=== PATIENT | male | born 1935 | race Caucasian/White ===

== ENCOUNTER 2017-07-07 21:19 | Inpatient (IN) | payer OTHER, BC ==
[~2017-07-07] VITALS: Ht 172.7 cm; Wt 82.6 kg
--- NOTE | ~2017-07-07 | EKG ---
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 : 1935 Requested By: Henry Dixon Order Number: [id number] MD: Wilmar Alex Measurements Intervals [place] Rate: 85 P: 54 NV: 180 QRS: -65 QRSD: 139 T: 85 QT: 394 QTc: 469 Interpretive Statements Sinus rhythm Occasional atrial premature complexes Right bundle branch block LVH with IVCD and secondary repol abnrm Inferior infarct, old Compared to ECG 04/24/2014 09:15:49 Atrial premature complexes are now present Electronically Signed On 07-08-2017 8:09:38 [employer]ING [employer] by Wilmar Alex [email or web address] <ELECTRONICALLY SIGNED> By: Wilmar Alex MD, [facility] 07/08/17 0809 [phone] Wilmar Alex MD, [facility] /EPI
--- NOTE | ~2017-07-07 | H ---
[facility] [place] [address] HISTORY AND PHYSICAL Name: FLASH COLEMAN Room #: 441-P ADM IN .R.#: [id number] Admission: 07/07/17 Attend Phys: Anamika Morales Discharge: Date of : 35 Report #: [id number] THIS REPORT FOR: //name// CC: Bertrand Valadez DATE OF SERVICE: 07/08/2017 CHIEF COMPLAINT: Shortness of breath. HISTORY OF PRESENT ILLNESS: The patient is an 82-year-old gentleman who presented to the Emergency Room with acute shortness of breath. He said, last night he felt chest tightness, wheezing and he was coughing up clear thin sputum, developed yesterday evening. He said prior to this, he had been in his usual state of health and was feeling well. He had no recent chest pain, fever, chills, edema or productive cough. Evaluation in the ER revealed elevated BNP and chest x-ray with pulmonary edema. He also had elevated blood pressure of approximately 200/100. He has responded well to IV Lasix. PAST MEDICAL HISTORY: Hypertension, remote history of diskitis, lumbar spinal stenosis, hypertension, diabetes type 2, polyneuropathy. PAST SURGICAL HISTORY: Noncontributory. FAMILY HISTORY: His parents with heart disease. SOCIAL HISTORY: He is a former smoker, [id number], quit remotely. No chronic alcohol use. ALLERGIES: SULFA. MEDICATIONS: Aspirin, trazodone, oxycodone 10 mg, Myrbetriq, Flomax 0.4 mg. REVIEW OF SYSTEMS: He denies headache, chest pain, shortness of breath, abdominal pain, nausea, vomiting, diarrhea, constipation, dysuria, syncope. OBJECTIVE: VITAL SIGNS: Temperature 36.9, pulse 55, respirations 18, blood pressure 151/73, O2 sat 99% on room air. GENERAL: He is awake and alert, in no distress. LUNGS: Clear. HEART: Regular. ABDOMEN: Soft, normoactive bowel sounds. EXTREMITIES: There is trace ankle edema. NEUROLOGIC: Cranial nerves intact. He is alert and oriented. Global strength 5/5 throughout. [facility] [address] [place] [address] HISTORY AND PHYSICAL Name: FLASH COLEMAN Room #: 441-P [facility] IN .R.#: [id number] Admission: 07/07/17 Attend Phys: Anamika Morales Discharge: Date of : 35 Report #: [id number] LABORATORY DATA: BNP was approximately 800. Troponin negative. Flu swab negative. Chest x-ray, interstitial edema. ASSESSMENT: 1. Acute congestive heart failure. 2. Hypertension. PLAN: Losartan will be started and I have asked for an echocardiogram. I have consulted Dr. Mancuso. See for DVT prophylaxis. Anticipate medical treatment with outpatient followup. <ELECTRONICALLY SIGNED> By: Henry Rodriguez MD 07/08/17 1432 1412 1427 Henry Rodriguez MD /michaela
--- NOTE | ~2017-07-07 | 2DMMODE ---
[facility] [address] [place] [address] 2 D/M-MODE ECHOCARDIOGRAM Name: FLASH COLEMAN Room #: 441-P [facility] IN [facility].#: [id number] Admission: 07/07/17 Attend Phys: Bertrand Hernandez Discharge: Date of : 35 Date of Service: 07/08/17 1541 Report #: [id number] THIS REPORT FOR: //name// APPROVED REPORT Study performed: 07/08/2017 14:48:05 EXAM: Comprehensive 2D, Doppler, and color-flow Echocardiogram Patient Location: Bedside Room #: [facility] Status: routine BSA: 1.94 HR: 61 bpm BP: 151/73 mmHg Other Information Study Quality: Adequate Indications Congestive Heart Failure Diabetes Dyspnea Hypertension/HDD 2D Dimensions RVDd: 30.94 mm LVEF(%): 60.11 (>50%) IVSd: 10.60 (7-11mm) LVOT Diam: 19.73 (18-24mm) LVDd: 46.72 mm PWd: 10.28 (7-11mm) Ascending Ao: 29.84 (22-36mm) LVDs: 31.77 (25-40mm) Aortic Root: 31.83 mm IVC: 27.00 mm Dorsey's LVEF: 60.11 % Volumes Left Atrial Volume (Systole) Single Plane 4CH: 67.62 mL Single Plane 2CH: 57.38 mL LA ESV Index: 37.00 mL/m2 Aortic Valve AoV Peak Jaspreet.: 1.15 m/s AO Peak Gr.: 5.31 mmHg LVOT Max P.31 mmHg LVOT Max V: 0.91 m/s REVA Vmax: 2.41 cm2 AI Vmax: 4.36 m/s AI [place]: 2.22 m/s2 [facility] [place] [address] 2 D/M-MODE ECHOCARDIOGRAM Name: FLASH COLEMAN Room #: 441-P [facility] IN .R.#: [id number] Admission: 07/07/17 Attend Phys: Bertrand Hernandez Discharge: Date of : 35 Date of Service: 07/08/17 1541 Report #: [id number] AI PHT: 570.17 ms Mitral Valve E/A Ratio: 3.0 MV Decel. Time: 179.26 ms MV E Max Jaspreet.: 1.15 m/s MV A Jaspreet.: 0.38 m/s MV PHT: 51.98 ms IVRT: 73.82 ms Pulmonary Valve PV Peak Jaspreet.: 0.97 m/s PV Peak Gr.: 3.79 mmHg WA End Vmax: 1.09 m/s Pulmonary Vein P Vein S: 0.36 m/s P Vein A: 0.23 m/s P Vein D: 0.89 m/s P Vein A Dur.: 115.3 msec P Vein S/D Ratio: 0.40 Tricuspid Valve TR Peak Jaspreet.: 3.17 m/s TR Peak Gr.: 40.17 mmHg PA Pressure: 50.00 mmHg Left Ventricle The left ventricle is normal size. There is normal LV segmental wall motion. There is normal left ventricular wall thickness. The left ventricular systolic function is normal. The left ventricular ejection fraction is within the normal range. LVEF is 50-55%. Grade III - reversible restrictive diastolic dysfunction. Right Ventricle The right ventricle is normal size. The right ventricular systolic function is normal. Atria Left atrium is dilated. Right atrium is dilated. Aortic Valve The aortic valve is midly sclerotic Mild aortic regurgitation. There is no aortic valvular stenosis. Mitral Valve The mitral valve is normal in structure. Mild mitral regurgitation. No evidence of mitral valve stenosis. [facility] [address] [place] [address] 2 D/M-MODE ECHOCARDIOGRAM Name: FLASH COLEMAN Room #: 441-P [facility] IN .R.#: [id number] Admission: 07/07/17 Attend Phys: Bertrand Hernandez Discharge: Date of : 35 Date of Service: 07/08/17 1541 Report #: [id number] Tricuspid Valve The tricuspid valve is normal in structure. There is mild tricuspid regurgitation. Estimated PAP 50 mmHg. There is moderate pulmonary hypertension. Pulmonic Valve The pulmonary valve is normal in structure. Trace pulmonic regurgitation. Great Vessels The aortic root is normal in size. IVC is dilated and collapses <50% with inspiration. Pericardium There is no pericardial effusion. <Conclusion> The left ventricular systolic function is normal. There is normal LV segmental wall motion. LVEF 50-55%. Grade III diastolic dysfunction Both atria are dilated. The aortic valve is midly sclerotic. Mild aortic regurgitation, no stenosis. The mitral valve is normal in structure. Mild mitral regurgitation. There is mild tricuspid regurgitation. Estimated pulmonary artery pressure of 50 mmHg. There is no pericardial effusion. <ELECTRONICALLY SIGNED> By: Wilmar Alex MD, FACC 07/08/17 [id number] Wilmar Alex MD, FACC /INF
--- NOTE | ~2017-07-07 | D ---
[facility] [place] [address] DISCHARGE SUMMARY Name: FLASH COLEMAN Room #: 441-P [facility] IN M.R.#: [id number] Admission: 07/07/17 Attend Phys: Anamika Morales Discharge: 07/09/17 Date of : 35 Report #: [id number] THIS REPORT FOR: //name// CC: Bertrand Valadez DATE OF SERVICE: 07/09/2017 CHIEF COMPLAINT: 1. Acute congestive heart failure. 2. Hypertension. HOSPITAL COURSE: The patient was admitted with shortness of breath and diagnosed with acute congestive heart failure due to probably accelerated hypertension with initial readings of 200/100. He was treated medically and responded well to diuretic and ARB. Dr. Garrett saw him in consultation. Echocardiogram was fairly unremarkable. Nuclear stress test was negative. The following day, he had no complications and plans were for outpatient followup. DISPOSITION: He will be discharged to home with diet and activity as tolerated, low sodium diet. Follow up with Dr. Valadez and Dr. Garrett in 1-2 weeks. He will continue usual medications plus Lasix 20 mg a day, mEq a day and losartan 100 mg a day. <ELECTRONICALLY SIGNED> By: Henry Rodriguez MD 07/10/17 1540 1027 [id number] Henry Rodriguez MD /nt
[~2017-07-07 21:19] MED LIST: ACID CONTROL20 MG PO; ALLOPURINOL 10100 M1 PO; AMBIEN 5 MG TABL5 M1 PO; ATIVAN0.5 MG PO; ATIVAN1 MG PO; B12INJ IM; BACTROBAN CREAM30 G1 TOP; CEFADROXIL 500500 M1 PO; CIPRO250 M1 PO; CLEOCIN HCL150 MG PO; CYMBALTA20 MG PO; CYMBALTA60 MG PO; ECOTRIN325 MG PO; ENOXAPARIN40 MG/0.4 SUBQ; FLOMAX0.4 MG; FLOMAX0.4 MG PO; FOLIC ACID1 MG PO; FUROSEMIDE 40 M40 M1 PO; GNP THERAPEUTI1 EACH PO; HYDROCHLOROTHIA25 M2 PO; HYDROCODON-ACE1 EAC5 PO; HYDROCODONE-AP1 EAC6 PO; K-DUR 20 MEQ T20 MEQ PO; KLOR-CON 1010 MEQ PO; LASIX 40 MG TAB40 M1 PO; LISINOPRIL10 MG PO; LORAZEPAM 1 MG T1 MG PO; MULTI VITAMIN1 EACH PO; NAFCILLIN 2 GM A2 G1 IV; OXYCODONE HCL E10 MG PO; Oxycodone PO; PANCRELIPASE 51 EACH PO; PERCOCET 5-3251 EACH PO; PREDNISONE 10 M10 MG PO; PRINIVIL10 MG PO; ROXICODONE5 M1 PO; SENNA PO; SIMVASTATIN40 MG PO; TAMSULOSIN HCL0.4 M1 PO; TRAZODONE 150150 M1; TUMS CHEWA500 MG/11 PO; VITAMIN B-1100 M1 PO; VITAMIN D-32000 UNIT PO; VITAMIN D400 UNI1; XARELTO10 MG PO
[2017-07-07 21:21] VITALS: BP 214/98
[2017-07-07 21:43] LABS: ABSOLUTE NEUTROPHILS 6.5 thou/uL (1.4-8.2); BASOPHILS 0.4 % (0.0-2.0); EOSINOPHILS 1.8 % (0.0-3.0); HEMATOCRIT 42.9 % (42.0-52.0); HEMOGLOBIN 14.4 gm/dL (14.0-18.0); LYMPHOCYTES 11.9 % (24.0-44.0); MCH 31.8 pg (26.0-34.0); MCHC 33.5 g/dL (28.0-37.0); MONOCYTES 5.5 % (1.0-8.0); PLATELET COUNT 126 thou/uL (150-400); POLYS 80.4 % (36.0-66.0); RBC 4.52 mil/uL (4.50-6.00)
[2017-07-07] MEDS ORDERED: TRAZODONE HCL100 MG PO (21:46)
[2017-07-07 21:49] LABS: CALCIUM 9.2 mg/dL (8.5-10.1); CREATININE 1.1 mg/dL (0.7-1.3)
[2017-07-07 22:53] VITALS: BP 174/70
[2017-07-07 23:26] VITALS: BP 147/57
[2017-07-08 03:53] VITALS: BP 141/67
[2017-07-08 05:02] LABS: CALCIUM 8.6 mg/dL (8.5-10.1); CREATININE 1.1 mg/dL (0.7-1.3); POTASSIUM 3.8 mmol/L (3.5-5.1)
[2017-07-08 08:00] VITALS: BP 151/73
[2017-07-08 16:00] VITALS: BP 169/73
[2017-07-08 21:00] VITALS: BP 164/79
[2017-07-09 02:06] LABS: GLYCOHEMOGLOBIN (HGB A1C) 5.5 % (4.8-5.6)
[2017-07-09 04:47] VITALS: BP 146/71
[2017-07-09 05:49] LABS: HEMATOCRIT 40.1 % (42.0-52.0); HEMOGLOBIN 13.4 gm/dL (14.0-18.0); MCH 31.7 pg (26.0-34.0); MCHC 33.5 g/dL (28.0-37.0); MCV 94.6 fL (80.0-100.0); RBC 4.24 mil/uL (4.50-6.00); RDW 13.7 % (10.5-14.5); WBC 6.1 thou/uL (4.0-11.0)
[2017-07-09 06:26] LABS: CALCIUM 8.6 mg/dL (8.5-10.1); POTASSIUM 3.8 mmol/L (3.5-5.1)
[2017-07-09 07:34] VITALS: BP 144/65
[2017-07-09] MEDS ORDERED: COZAAR100 MG PO (10:16)
[2017-07-09] MEDS ORDERED: ASPIR 8181 MG PO (10:16)
[2017-07-09] MEDS ORDERED: K-TAB ER8 MEQ PO (10:17)
[2017-07-09] MEDS ORDERED: LASIX 20 MG TAB20 MG PO (10:17)
[2017-07-09 13:52] VITALS: BP 144/65
[2017-08-18] MEDS ORDERED: TRAZODONE HCL100 MG PO (11:02)
[2017-08-18] MEDS ORDERED: NITROGLYCERIN0.4 MG SUBLING (11:02)
[2017-08-18] MEDS ORDERED: OXYCODONE HCL10 MG PO (11:04)
[2017-09-22] MEDS ORDERED: BENICAR40 MG PO (08:45)
[2017-09-22] MEDS ORDERED: KLOR-CON 1010 MEQ PO (08:45)
[2017-09-22] MEDS ORDERED: ASPIR 8181 MG PO (08:46)
[2017-09-22] MEDS ORDERED: LASIX 20 MG TAB20 MG PO (08:46)
== END 2017-07-09 14:40 | disposition home or self-care (01) | DRG 291 ==
LOC: ER 21:19 → 4S 22:13 → EROBS 22:13 → 4S 22:54
PROVIDERS: Emergency Medicine; Internal Medicine Geriatric Medicine
DX: I11.0 Hypertensive heart disease with heart failure (principal); J96.00 Acute respiratory failure, unspecified whether with hypoxia or hypercapnia; E89.0 Postprocedural hypothyroidism; M10.9 Gout, unspecified; F32.9 Major depressive disorder, single episode, unspecified; F41.9 Anxiety disorder, unspecified; Z96.641 Presence of right artificial hip joint; N40.0 Benign prostatic hyperplasia without lower urinary tract symptoms; E11.42 Type 2 diabetes mellitus with diabetic polyneuropathy; Z82.49 Family history of ischemic heart disease and other diseases of the circulatory system; Z87.442 Personal history of urinary calculi; Z79.82 Long term (current) use of aspirin; Z79.899 Other long term (current) drug therapy; Z88.2 Allergy status to sulfonamides; Z87.891 Personal history of nicotine dependence; I50.31 Acute diastolic (congestive) heart failure
CPT/HCPCS: 10100

== ENCOUNTER → 2017-08-18 | Outpatient (CLI) | payer OTHER, BC ==
[~2017-08-18] VITALS: Ht 172.7 cm; Wt 89.6 kg
[~2017-08-18] MED LIST changes: +ASPIR 8181 MG PO; +COZAAR100 MG PO; +K-TAB ER8 MEQ PO; +LASIX 20 MG TAB20 MG PO; +NITROGLYCERIN0.4 MG SUBLING; +OXYCODONE HCL10 MG PO; +TRAZODONE HCL100 MG PO
--- NOTE | ~2017-08-18 | HPC ---
[facility] [place] [address] PAIN MANAGEMENT CONSULTATION Name: FLASH COLEMAN Room #: REG [facility]#: [id number] Admission: 08/18/17 Attend Phys: Jose Luis Moreno DO Discharge: Date of : 35 Report #: [id number] THIS REPORT FOR: //name// CC: Bertrand Moreno DATE OF SERVICE: 08/18/2017 CHIEF COMPLAINT: Low back pain, left lower extremity pain and paresthesias. HISTORY OF PRESENT ILLNESS: As you know, the patient is an 82-year-old male who has been referred to our service for low back pain, left lower extremity pain that began on 06/18/2017. The patient denies specific injury or trauma that may have led to symptom development. The patient indicates pain began spontaneously and progressively worsened. The patient sought evaluation through his primary care physician, Dr. Bertrand Valadez, who referred the patient to our clinic for evaluation. The patient apparently failed conservative treatment and was subsequently referred to our service. He comes today to our clinic, describing pain as intermittent, describes the pain as tender, numbness and tingling. He indicates pain level of 5/10, daily average at 5/10, worst pain has been is 10/10. The patient states sitting and lying down exacerbates symptoms, aspirin therapy and oxycodone tends to improve pain. He has been referred to our service for evaluation. He comes today with no new imaging studies, most recent MRI is from 2016, greater than 2 years old. He returns to discuss options of treatment for suspected lumbar radiculopathy. PAST MEDICAL HISTORY: 1. Hypertension. 2. Degenerative joint disease. 3. Osteoarthritis. 4. History of gout. 5. Parathyroid cancer. PAST SURGICAL HISTORY: 1. Tonsillectomy. 2. Parathyroidectomy. 3. Colonoscopy. 4. Right total hip arthroplasty. 5. Left total hip arthroplasty. SOCIAL HISTORY: The patient denies tobacco, IV or illicit drug use. Admits to 5 alcoholic beverages per week. He is retired, retired years ago. He is not receiving workmen's compensation nor is trying to obtain disability benefits. He is not in litigation in regards to pain. He is unaccompanied today. REVIEW OF SYSTEMS: Positive for wearing corrective eyewear, hearing loss with [facility] [address] [place] [address] PAIN MANAGEMENT CONSULTATION Name: FLASH COLEMAN Samson Room #: REG [facility]#: [id number] Admission: 08/18/17 Attend Phys: Jose Luis Moreno DO Discharge: Date of : 35 Report #: [id number] tinnitus, chronic nosebleed, constipation, frequent urination, nocturia, incontinence, dribbling to urine, sexual difficulty, low back pain, left lower extremity pain and paresthesias. All other review of systems negative per 12-point review of systems other than those listed in history of present illness. Pain impact score 16/70, indicating mild interference of daily activities secondary to pain. ALLERGIES: SULFA. CURRENT MEDICATIONS: Oxycodone 10 mg every 12 hours p.r.n. pain, trazodone 100 mg p.o. at bedtime, nitroglycerin 0.4 mg p.r.n. IMAGING: MRI lumbar spine obtained on 07/16/2015 shows lumbar spondylosis seen and disk space narrowing and mild central canal narrowing at L3-L4, bulging of the L3-L4 disk with fairly significant neural foraminal narrowing at L3-L4. Degenerative changes noted throughout the rest of the lumbar spine. PQRS: The patient does have known osteoarthritis. No rheumatoid arthritis. His pain impact score 5/10. He is not a fall risk, has not had a fall in the last 3 months. He does use a walker for ambulation. He is not on blood thinners. He is treated for hypertension. He is not on opioids of greater than 6 weeks, receiving medications through his PCP. He has a low risk of opioid abuse. His functional assessment tool/pain impact score 16/70, mild to moderate. PHYSICAL EXAMINATION: VITAL SIGNS: Blood pressure 176/89, pulse of 63, respiratory rate 12 and unlabored. The patient is 97% on room air. Height 5 feet 8 inches tall, weight 197.6 pounds, BMI calculated 30.1. GENERAL: Well-developed, well-nourished, well-hydrated, 82-year-old male. He appears his stated age, placing pain score 5/10. HEENT: Normocephalic, atraumatic. Pupils equal, round, reactive to light. Extraocular muscles are intact. Sclerae nonicteric without injection. NEUROLOGIC: Cranial nerves 2-12 grossly intact. Speech is fluent. The patient deemed a good historian. LUNGS: Clear; no wheeze, rhonchi or rales. CARDIOVASCULAR: Regular. No appreciable gallop, no rub. ABDOMEN: Soft, normoactive bowel sounds. EXTREMITIES: Show no clubbing, no cyanosis, no edema. MUSCULOSKELETAL: Lower extremity strength appears equal and symmetrical 5/5, intact to light touch from L1 through S2 dermatomes. Seated straight leg raising negative. Supine straight leg raising positive on the left. Sergey's test negative. Modified Gaenslen's positive for axial low back pain. Ankle clonus negative. Babinski is negative. Lumbar provocation testing including extension, rotation, lateral flexion all intensify axial back pain, no radiation of symptoms. [facility] [address] [place] [address] PAIN MANAGEMENT CONSULTATION Name: FLASH COLEMAN Room #: REG [facility]#: [id number] Admission: 08/18/17 Attend Phys: Jose Luis Moreno DO Discharge: Date of : 35 Report #: [id number] ASSESSMENT: 1. Symptomatic lumbar radiculopathy. 2. Displacement of lumbar intervertebral disk with radiculopathy. 3. Lumbosacral spondylosis with radiculopathy. 4. Facet arthropathy of lumbar spine. 5. Chronic intractable pain. PLAN: 1. Based on today's physical exam and history the patient has provided, the description the patient uses in regards to pain as well as location of symptoms, likely source of his pain is lumbar radiculopathy. We have reviewed with the patient the 2-year-old MRI imaging that he came with today. Unfortunately, we do not have newer imaging and are unable to determine specifically the pathology that exists in the lumbar region. Given the distribution, it does appear to be that he is suffering from an L4-L5 dermatomal distribution problem on the left. The level of pathology cannot be fully determined with a 2-year-old imaging. We did discuss with the patient the options for treatment to address what appears to be lumbar radicular symptoms. We discussed the following with the patient today. We discussed physical therapy, stretching exercises, core strengthening as a conservative treatment option. We discussed medication management with neuropathic pain medications and consistent nonsteroidal anti-inflammatory. We discussed epidural injections for which the patient was referred to our clinic and surgical options. After reviewing risks and benefits of all proposed treatment options, the patient chose to begin with a lumbar epidural injection. The patient was advised risks and benefits of a lumbar epidural injection. These risks include but are not necessarily limited to bleeding, bruising, infection, worsening pain, no relief of pain, also risk of temporary or permanent muscle weakness, temporary or permanent nerve damage, possible paralysis and . The patient states understood and wished to proceed. 2. No medication changes made at today's visit. The patient to continue current medical therapy as previously prescribed. 3. The patient will return to our clinic in approximately 3 weeks. At that time, review efficacy of today's epidural injection and to determine if next in the series of epidural injections would be recommended. 4. I wish to thank Dr. Valadez for the referral of this patient to our clinic. We will keep you apprised of his response to treatment as we address his suspected lumbar radiculopathy. Again, we wish to thank you for the opportunity to see the patient in consultation. PROCEDURE NOTE DESCRIPTION OF PROCEDURE: L5-S1 left paramedian epidural steroid injection [address] [address] PAIN MANAGEMENT CONSULTATION Name: FLASH COLEMAN Room #: REG [facility]#: [id number] Admission: 08/18/17 Attend Phys: Jose Luis Moreno DO Discharge: Date of : 35 Report #: [id number] under fluoroscopic guidance. This is the first procedure of the first series that the patient is undergoing. After obtaining written consent, the patient was taken back to the fluoroscopy suite, placed in a prone position with pillow under the abdomen to decrease lumbar lordosis. The skin overlying the lumbosacral area was then prepped and draped in aseptic fashion. The L5-S1 vertebral interspace was then identified by AP fluoroscopy. The skin and subcutaneous tissue overlying the target site of injection was anesthetized with 3 mL 1% lidocaine. A 20 gauge 3.5 inch Tuohy needle was then advanced under fluoroscopic guidance towards the epidural space using a left paramedian approach. The epidural space was identified using loss of resistance to air technique. After negative aspiration for heme or cerebrospinal fluid, a total of 1 mL of Omnipaque was injected. A lumbar epidurogram was confirmed using both AP and lateral fluoroscopy. After negative aspiration for heme or cerebrospinal fluid, 5 mL of a solution containing 2 mL 40 mg per mL, 80 mg total triamcinolone, 3 mL lidocaine 1% was injected in increments. Contrast spread was noted posterior epidural space. The needle was then retracted approximately half way and needle tract flushed with 1 mL of 1% of lidocaine. Needle was then removed. There were no apparent sensory or motor deficits in the lower extremity following the procedure. A sterile bandage was placed over the injection site. The heart rate, pulse, oximetry and blood pressure were continuously monitored after the procedure. There were no apparent complications. The patient tolerated the procedure well and was carefully escorted to the recovery room in stable condition. There were no apparent complications. After meeting discharge criteria, the patient was then discharged home. <ELECTRONICALLY SIGNED> By: Jose Luis Moreno DO 08/25/17 1403 0700 [id number] Jose Luis Moreno DO /nt
[2017-08-18 10:52] VITALS: BP 176/89
== END | disposition home or self-care (01) ==
LOC: PAIN 07:10
DX: M51.16 Intervertebral disc disorders with radiculopathy, lumbar region (principal); G89.29 Other chronic pain; M47.27 Other spondylosis with radiculopathy, lumbosacral region; M46.96 Unspecified inflammatory spondylopathy, lumbar region; I10 Essential (primary) hypertension; E11.9 Type 2 diabetes mellitus without complications; M10.9 Gout, unspecified; M19.90 Unspecified osteoarthritis, unspecified site; Z88.2 Allergy status to sulfonamides; Z79.891 Long term (current) use of opiate analgesic; Z96.643 Presence of artificial hip joint, bilateral; Z98.890 Other specified postprocedural states; Z85.850 Personal history of malignant neoplasm of thyroid; Z87.891 Personal history of nicotine dependence

== ENCOUNTER → 2017-09-08 | Outpatient (CLI) | payer OTHER, BC ==
[~2017-09-08] VITALS: Ht 172.7 cm; Wt 82.6 kg
--- NOTE | ~2017-09-08 | HPC ---
[facility] [address] [place] [address] PAIN MANAGEMENT CONSULTATION Name: FLASH COLEMAN Room #: REG [facility]#: [id number] Admission: 09/08/17 Attend Phys: Jose Luis Moreno DO Discharge: Date of : 35 Report #: [id number] THIS REPORT FOR: //name// CC: Navid Moreno DATE OF SERVICE: 09/08/2017 REFERRING PHYSICIAN: Navid Valadez MD CHIEF COMPLAINT: Left thigh pain. HISTORY OF PRESENT ILLNESS: As you know, the patient is an 82-year-old male who returns today in followup visit stating continued left thigh pain even after epidural injection. He has been evaluated by orthopedic surgery and advised that his symptoms are not related to his total hip arthroplasty, that his symptoms are likely more related to low back. The patient underwent an epidural injection at our last visit, which provided 100% improvement in his numbness and tingling radiating down the leg, but he remains having difficulty with pain in the right lateral portion of the thigh, it appears to be related more to the iliotibial band. He returns stating that he is quite frustrated that his pain has not disappeared. He is seeking evaluation and requesting possible surgical options. He "is tired of trying bandaging his symptoms." He returns to discuss options for treatment, he is placing pain score today no greater than 5/10, states his state the pain is warm, hard and sore in sensation, exacerbated with activities, improves with medications and Biofreeze. He is placing again pain score 5/10. He has had no changes in medical history since our last visit. ALLERGIES: SULFA. CURRENT MEDICATIONS: Oxycodone 10 mg every 12 hours, trazodone 100 mg p.o. at bedtime, and nitroglycerin 0.4 mg p.r.n. IMAGING: No imaging available. PQRS: The patient has known osteoarthritis. No rheumatoid arthritis. He is placing pain score intensity at 5/10. He is not a fall risk, has not had a fall in the last 3 months. He is not on blood thinners. He is treated for hypertension. He is not on opioids. He has a low risk for opioid abuse. Functional assessment tool pain impact score 16/70, mild. PHYSICAL EXAMINATION: VITAL SIGNS: Blood pressure 157/72, pulse 62, respiratory rate 20 and unlabored, the patient is 100% on room air, height 5 feet 8 inches tall, weight 182 pounds, and BMI calculated 27.7. [facility] [address] [place] [address] PAIN MANAGEMENT CONSULTATION Name: FLASH COLEMAN Room #: [facility]#: [id number] Admission: 09/08/17 Attend Phys: Jose Luis Moreno DO Discharge: Date of : 35 Report #: [id number] GENERAL: Well-developed, well-nourished, well-hydrated 82-year-old male, he appears stated age, he is placing pain score today 5/10. HEENT: Normocephalic, atraumatic. Pupils are equal, round, and reactive to light. Extraocular muscles are intact. EXTREMITIES: Show no clubbing, no cyanosis, and no edema. MUSCULOSKELETAL: Seated straight leg raising negative. Supine straight leg raising positive on the left. Sergey's test negative. Modified Gaenslen's positive for axial low back pain. There is palpatory tenderness over the lateral portion of the left thigh radiating from the greater trochanter to the lateral aspect of the left knee. No radiation of symptoms beyond the knee itself. ASSESSMENT: 1. Symptomatic lumbar radiculopathy. 2. Spinal stenosis of the lumbar spine. 3. Displacement of lumbar intervertebral disk with radiculopathy. 4. 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 5. Peripheral neuropathy. 6. Chronic intractable pain. PLAN: The patient returns today in followup visit where we have discussed at length his ongoing pain on the left side radiating from the greater trochanter to approximately the lateral portion of the left knee. This appears to be related more to myofascial issues than any neuropathic component, though there is a strong possibility that his stenosis noted from the 2016 imaging at L3-L4 with significant neural foraminal stenosis could be the source of his symptoms. The patient and I had discussions of treatment options to address those specific issues, following was discussed with the patient today. We discussed physical therapy, stretching exercise, core strengthening as a way to improve left lower extremity pain. We discussed medication management with addition of a neuropathic medication and consistent nonsteroidal anti-inflammatory. We discussed repeating epidural injection as he did see good benefit from his numbness and tingling radiating down the leg from our last visit. In fact, he has had complete resolution of those symptoms. We also discussed spinal cord stimulator therapy is an option and surgical. The patient indicates that he is "tired of the bandaging his problems, and wishes a complete treatment option." The patient has chosen to be evaluated by neurosurgery. The patient will need to undergo new MRI, his MRI is from July 2015, 2 years old. He will need new imaging prior to being seen by neurosurgery. We will send the patient for MRI of the lumbar spine without contrast for evaluation. We will make this available to the referring physician Dr. Valadez, so that he may also review the findings. The patient once he has completed his MRI, can then follow up with phone numbers given for neurosurgery consultation. He can make his earliest appointment to see Neurosurgery in regards to surgical options. We will be available to see the patient back in followup visit for the next in the [place] [address] [address] [place] [address] PAIN MANAGEMENT CONSULTATION Name: FLASH COLEMAN Room #: REG [facility]#: [id number] Admission: 09/08/17 Attend Phys: Jose Luis Moreno DO Discharge: Date of : 35 Report #: [id number] series of epidural injections as I do feel that he received good benefit with therapy. He is unwilling at this time to undergo the procedure as he feels we are only applying a bandage to his problem and not resolving his problems consistently, though we will be available to see him back if he wishes. By: [id number] Jose Luis Moreno DO /nt
[2017-09-08 11:03] VITALS: BP 157/72
== END ==
LOC: PAIN 06:07
DX: M47.26 Other spondylosis with radiculopathy, lumbar region (principal); G62.9 Polyneuropathy, unspecified; Z88.2 Allergy status to sulfonamides

== ENCOUNTER → 2017-09-16 | Outpatient (CLI) | payer OTHER, BC | LOC: MRI 13:58 | DX: M51.16 Intervertebral disc disorders with radiculopathy, lumbar region (principal); M48.061 Spinal stenosis, lumbar region without neurogenic claudication ==

== ENCOUNTER → 2017-09-22 | Outpatient (CLI) | payer OTHER, BC ==
[~2017-09-22] VITALS: Ht 172.7 cm; Wt 82.6 kg
[~2017-09-22] MED LIST changes: +BENICAR40 MG PO
--- NOTE | ~2017-09-22 | HPC ---
[facility] [address] [place] [address] PAIN MANAGEMENT CONSULTATION Name: FLASH COLEMAN Room #: REG [facility]#: [id number] Admission: 09/22/17 Attend Phys: Jose Luis Moreno DO Discharge: Date of : 35 Report #: [id number] THIS REPORT FOR: //name// CC: BERTRAND Moreno DATE OF SERVICE: 09/22/2017 REFERRING PHYSICIAN: Dr. Bertrand Valadez. CHIEF COMPLAINT: Left thigh tenderness. HISTORY OF PRESENT ILLNESS: As you know, the patient is an 82-year-old male who returns today in followup visit with continued left thigh tightness and tenderness. The patient and I did discuss the potential cause of his ongoing left thigh tenderness and tightness sensation. I did believe it was due to neuropathic issues secondary to findings in the lumbar spine. He chose to undergo imaging. He returns today to review the findings. He is quite concerned about development of sarcoma. Apparently, his began to experience similar pain in her leg, she chose not to look into treatment options or evaluation. This apparently led to the patient's 's . He is quite fixated on the fact that his thigh is painful. He returns today in followup visit stating pain level of 4/10 at its maximum. He returns to discuss the findings of the MRI, we requested for evaluation to determine if surgical options would be necessary. ALLERGIES: SULFA. CURRENT MEDICATIONS: Oxycodone 10 mg every 12 hours, trazodone 100 mg p.o. at bedtime, nitroglycerin 0.4 mg p.r.n. IMAGING: MRI lumbar spine obtained 09/16/2017 shows L1-L2, L2-L3 unremarkable. At L3-L4, we have facet arthropathy, ligamentum flavum hypertrophy resulting in central canal stenosis. There is also bilateral symmetrical lateral recess stenosis that is severe on the left, [id number] on the right. At L4-L5, there is a minimal broad-based disk bulge, pressing on the thecal sac, though this is not causing any central canal stenosis. There is moderate bilateral neural foraminal stenosis. There is mild facet arthropathy, ligamentum flavum hypertrophy at the L5-S1 level. PQRS: The patient has known osteoarthritis. No rheumatoid arthritis. He has a pain intensity today listed at 4/10. He is not a fall risk, has not had a fall in the last 3 months. He is not on blood thinners. He is treated for hypertension. He is not on chronic opioids. For greater than 6 weeks, he has low risk of opioid abuse. His functional assessment tool, pain impact score [address] [address] PAIN MANAGEMENT CONSULTATION Name: COLEMANFLASH Room #: REG [facility].#: [id number] Admission: 09/22/17 Attend Phys: Jose Luis Moreno DO Discharge: Date of : 35 Report #: [id number] , mild. PHYSICAL EXAMINATION: VITAL SIGNS: Blood pressure 141/59, pulse 57, respiratory rate 14, unlabored. The patient is 97% on room air. Height 5 feet 8 inches tall, weight 182 pounds, BMI calculated 27.7. HEENT: Normocephalic, atraumatic. Pupils equal, round, reactive to light. Extraocular muscles are intact. Sclerae nonicteric without injection. NEUROLOGIC: Cranial nerves 2-12 grossly intact. Speech is fluent. The patient deemed a good historian. LUNGS: Clear, no wheeze, rhonchi or rales. CARDIOVASCULAR: Regular. No appreciable gallop or rub. ABDOMEN: Soft, nontender, nondistended. EXTREMITIES: Show no clubbing, no cyanosis, no edema. MUSCULOSKELETAL: Seated straight leg raising negative. Supine straight leg raising mildly positive on the left. Sergey test negative. Modified Gaenslen's positive for axial low back pain. Well-healed surgical scar over the left hip status post arthroplasty. ASSESSMENT: 1. Symptomatic lumbar radiculopathy. 2. Displacement of lumbar intervertebral disk with radiculopathy. 3. Severe neural foraminal stenosis of the lumbar spine. 4. Facet arthropathy of the lumbar spine. 5. Peripheral neuropathy. 6. Chronic intractable pain. PLAN: 1. The patient has returned today in followup visit where we have reviewed in its entirety the MRI obtained 09/16/2017. As we had been concerned, the patient does have changes at the L3-L4 level that correlate specifically to his left thigh pain and distribution of tightness and numbness. We have discussed this with the patient today. We have discussed treatment options for the findings on his MRI, the following was discussed with the patient as treatment options. We discussed physical therapy, stretching exercises, core strengthening as a treatment option. We discussed medication management in the form of gabapentin or Lyrica, possibly Gralise, Cymbalta or even nortriptyline or amitriptyline. All these medications can help with neuropathic pain, but have varying levels of side effects, would have to discuss this with the patient further. We discussed epidural injection under fluoroscopic guidance to address lateral recess stenosis in hopes of improving pain further. We also discussed the surgical options with the patient, which may ultimately be necessary. The patient is considering these options. At this point, he does not wish to make any changes in therapy. 2. The patient is quite concerned about ongoing issues on his left leg. He is not fully accepting of the diagnosis provided through the MRI. He is requesting [facility] [address] [place] [address] PAIN MANAGEMENT CONSULTATION Name: FLASH COLEMAN Room #: REG [facility]#: [id number] Admission: 09/22/17 Attend Phys: Jose Luis Moreno DO Discharge: Date of : 35 Report #: [id number] x-ray imaging of the left femur. After a very long back and forth discussion about the necessity of this imaging, the patient chose he wants to undergo the imaging study, even though this will provide little or no benefit based on our diagnosis. We have sent him for the x-ray he has requested, we will review the findings though we are expecting to see post-surgical arthroplasty type findings, but I am not concerned of any osseous abnormalities. The patient was adamant that he wished to undergo this imaging study, we sent him for the x-ray. He can review this with us via telephone tomorrow or he can contact his PCP in regards to the findings themselves. 3. The patient wishes to consider his options for treatment. We would recommend if he is not considering a surgical evaluation, then to look towards medication management. We did offer this today. The patient wishes to consider the different treatments available before he makes a decision. We will be available to make adjustments in his medication therapy. Once he is stabilized on appropriate dose of therapy, we will provide him prescriptions to return to his PCP for continuation of the therapy as I do not feel these will require any opioid medications and will not require long-term pain management treatments. He will contact our clinic once he has made a decision on treatment option. 4. We wish to thank Dr. Valadez for the referral of patient to our clinic. We will keep you apprised of any other changes in therapy or direction of treatment if necessary. At present, the patient is considering his options. Again, we wish to thank you for the opportunity to see him in consultation. <ELECTRONICALLY SIGNED> By: Jose Luis Moreno DO 09/23/17 [id number] Jose Luis Moreno DO /nt
[2017-09-22 08:41] VITALS: BP 141/59
== END ==
LOC: PAIN 07:07
DX: M79.605 Pain in left leg (principal); Z96.642 Presence of left artificial hip joint

== ENCOUNTER → 2018-10-20 | Outpatient (CLI) | payer OTHER, BC | LOC: RAD 14:13 | DX: S92.415A Nondisplaced fracture of proximal phalanx of left great toe, initial encounter for closed fracture (principal); M19.072 Primary osteoarthritis, left ankle and foot; M10.9 Gout, unspecified; X58.XXXA Exposure to other specified factors, initial encounter; Y93.89 Activity, other specified; Y92.89 Other specified places as the place of occurrence of the external cause; Y99.8 Other external cause status ==

== ENCOUNTER → 2019-10-13 | Outpatient (CLI) | payer OTHER, BC | LOC: SJCVC 11:18 | PROVIDERS: ATTEND Internal Medicine | DX: E78.5 Hyperlipidemia, unspecified (principal); I10 Essential (primary) hypertension; I38 Endocarditis, valve unspecified; I45.10 Unspecified right bundle-branch block; R94.31 Abnormal electrocardiogram [ECG] [EKG]; M79.89 Other specified soft tissue disorders; Z79.82 Long term (current) use of aspirin; Z79.899 Other long term (current) drug therapy ==

== ENCOUNTER → 2019-10-19 | Outpatient (CLI) | payer OTHER, BC | LOC: SJCVCIMAG 10:39 | PROVIDERS: ATTEND Internal Medicine | DX: I08.3 Combined rheumatic disorders of mitral, aortic and tricuspid valves (principal); M79.604 Pain in right leg; M79.605 Pain in left leg; R60.0 Localized edema ==

== ENCOUNTER 2019-11-24 10:53 | Emergency (ER) | payer OTHER, BC ==
[~2019-11-24] VITALS: Ht 172.7 cm; Wt 81.7 kg
[2019-11-24] MEDS ORDERED: COZAAR 25 MG TA25 M1 PO (11:10)
[2019-11-24] MEDS ORDERED: SUPER THERAVIT1 EACH PO (11:10)
[2019-11-24] MEDS ORDERED: NORCO 10-325 T1 EACH PO (11:11)
[2019-11-24 12:21] VITALS: BP 163/74
== END 2019-11-24 12:20 | disposition home or self-care (01) ==
LOC: ER 10:53
DX: R04.0 Epistaxis (principal); I10 Essential (primary) hypertension; G62.9 Polyneuropathy, unspecified; Z91.048 Other nonmedicinal substance allergy status; Z90.89 Acquired absence of other organs; Z96.641 Presence of right artificial hip joint; Z79.899 Other long term (current) drug therapy; Z79.82 Long term (current) use of aspirin; Z88.2 Allergy status to sulfonamides; Z87.891 Personal history of nicotine dependence

== ENCOUNTER → 2020-10-15 | Outpatient (CLI) | payer OTHER, BC ==
[~2020-10-15] MED LIST changes: +COZAAR 25 MG TA25 M1 PO; +NORCO 10-325 T1 EACH PO; +SUPER THERAVIT1 EACH PO
== END ==
LOC: SJCVCIMAG 12:38
PROVIDERS: ATTEND Internal Medicine
DX: I08.3 Combined rheumatic disorders of mitral, aortic and tricuspid valves (principal); I10 Essential (primary) hypertension; E78.5 Hyperlipidemia, unspecified; Z79.899 Other long term (current) drug therapy

== ENCOUNTER 2021-06-29 11:05 | Emergency (ER) | payer OTHER, BC ==
[~2021-06-29] VITALS: Ht 172.7 cm; Wt 80.7 kg
[2021-06-29 11:07] VITALS: BP 200/74
[2021-06-29] MEDS ORDERED: MEDROLDOSEPACK PO (13:14)
[2021-06-29] MEDS ORDERED: METHOCARBAMOL500 M2 PO (13:14)
== END 2021-06-29 13:39 | disposition home or self-care (01) ==
LOC: ER 11:05
DX: M54.16 Radiculopathy, lumbar region (principal); M25.552 Pain in left hip; R22.42 Localized swelling, mass and lump, left lower limb; M10.9 Gout, unspecified; F17.210 Nicotine dependence, cigarettes, uncomplicated; Z98.890 Other specified postprocedural states; Z88.2 Allergy status to sulfonamides